=== PATIENT | female | born 1950 | race Caucasian/White ===

== ENCOUNTER 2019-03-12 08:17 | Emergency (ER) | payer MEDICARE ==
[2019-03-12] MEDS ORDERED: Sodium Chloride 0.9% 1,000 ML BAG ONE (08:40)
[2019-03-12 09:12] LABS: ALT (SGPT) 13 U/L (8-55); AST (SGOT) 21 U/L (5-34); Albumin 3.7 g/dL (3.4-4.8); Alkaline Phosphatase 64 U/L (40-150); Anion Gap 15 mmol/L (10-20); BUN (Urea Nitrogen) 27 mg/dL (9.8-20.1); Calc. Creatinine Clearance 0 mL/min (70-130); Calcium 9.5 mg/dL (7.8-10.44); Carbon Dioxide 24 mmol/L (23-31); Chloride 102 mmol/L (98-107); Estimated GFR-MDRD 37; Globulin 3.3 g/dL (2.4-3.5); Glucose 192 mg/dL (80-115); Sodium 138 mmol/L (136-145)
[2019-03-12] MEDS ORDERED: Ondansetron PF 4 MG/2 ML Vial ONE (09:15)
[2019-03-12] MEDS ORDERED: Cefepime 1 GM VIAL ONE (09:15)
[2019-03-12 09:28] LABS: Hemoglobin 12.4 g/dL (12.0-16.0); Mean Corpuscular Hemoglobin 29.2 pg (27.0-31.0); Mean Corpuscular Volume 88.3 fL (78.0-98.0); RBC Distribution Width 12.6 % (11.5-14.5); Red Blood Cell (RBC) Count 4.27 mill/uL (4.20-5.40); White Blood Cell (WBC) Count 4.5 thou/uL (4.8-10.8)
[2019-03-12 09:29] LABS: Band 5 % (5-11); Eosinophils 2 % (0-10); Lymphocytes 7 % (21-51); MDiff Complete? YES; Manual Diff?? YES; Monocytes 4 % (0-10); Neutrophil 82 % (42-75); Platelet Count 154 thou/uL (130-400); Platelet Morphology Comment Appears Adequate
[2019-03-12 09:33] LABS: Bilirubin Negative (Negative); Blood, Urine Small (Negative); Clarity Slightly Cloudy (Clear); Glucose, Urine (Dipstick) Negative (Negative); Leukocyte Moderate (Negative); Nitrite Positive (Negative); Protein, Urine (Dipstick) Negative (Neg-Trace); Specific Gravity, Urine 1.015 (1.005-1.030); Urobilinogen 0.2 mg/dL (0.2-1.0); pH, Urine 6.5 (5.0-9.0)
[2019-03-12 09:39] LABS: Bacteria/HPF 4+ HPF (None Seen)
--- NOTE | 2019-03-12 09:43 | RAD ---
Exam: Chest one view HISTORY:Fever, vomiting, sepsis Comparison: None FINDINGS: Lungs: Left basilar consolidation. Generalized interstitial prominence. Cardiac silhouette:Enlarged Pulmonary vessels: Engorged Pleural Spaces: Pleural fluid on the left is not excluded Pneumothorax: None Osseous abnormalities: None of acuity. IMPRESSION: Left basilar consolidation indicative of pneumonia, with probable adjacent pleural fluid. CHF with pulmonary edema. Follow-up to resolution is recommended.
--- NOTE | 2019-03-12 10:00 | CT ---
EXAM: Abdomen and pelvic CT scan without contrast: HISTORY: Abdominal pain with nausea vomiting COMPARISON: None FINDINGS: Mild atelectasis Liver: Unremarkable. Gallbladder: Surgically absent Pancreas: Unremarkable Spleen: Unremarkable. Adrenal glands: Unremarkable. Kidneys: Bilateral hypodensities, exophytic, incompletely characterized by noncontrast imaging. Punct ate calcification of right kidney Bowel: Incompletely evaluated without IV or enteric contrast. No obvious pathologic distention. There is a noninflamed rim calcified fat density focus adjacent bowel of the lower abdomen, favoring sequela from prior epiploic appendage on this or omental infarct. Urinary Bladder: Moderate distention Adenopathy: No adenopathy within the abdomen or pelvis. Free Air: No free air. Ascites: No ascites. Osseous structures: No acute osseous abnormalities. IMPRESSION: Within limitations of noncontrast technique, no obvious acute abnormality. Additional details are described above.
== END 2019-03-12 11:48 | disposition short-term general hospital (02) ==
LOC: MADERS 08:17
DX: N39.0 Urinary tract infection, site not specified (principal); E11.9 Type 2 diabetes mellitus without complications; E66.9 Obesity, unspecified; E78.5 Hyperlipidemia, unspecified; I10 Essential (primary) hypertension; G47.30 Sleep apnea, unspecified; Z79.82 Long term (current) use of aspirin; Z79.84 Long term (current) use of oral hypoglycemic drugs; Z79.899 Other long term (current) drug therapy
CPT/HCPCS: 36415; 51701; 71045; 74176; 80053; 81003; 81015; 83605; 83880; 84484; 85025; 87040; 87077; 87086; 87186; 93005; 96365; 96367; 96375; A4353; J0692; J2405; J3370; J7050